=== PATIENT | female | born 1960 | race Caucasian/White ===

== ENCOUNTER 2022-05-13 10:07 | Outpatient (CLI) | payer SELFPAY ==
--- NOTE | 2022-05-13 10:15 | MR_ITS ---
[address] [address] Phone:?[phone] Fax:?[phone] Referring Physician Information: Robyn Camarena [address] [facility] [address] Phone:?[phone] Fax:?[phone] Patient:?Adrianna Moore D.O.B:?1960 Sex:?Female Phone:?[phone] [facility] MRN:?[id number] Exam Date:?05/13/2022 ? EXAM: MRI EXAMINATION OF THE LEFT TIBIA/FIBULA CLINICAL INFORMATION: Evaluate mid to proximal fibular pathology. Pain. TECHNICAL INFORMATION: Axial T1 and PD fat saturation. Coronal T1, T2 and STIR. Sagittal STIR images were acquired. There are no prior studies available for comparison. INTERPRETATION: Bones: There is no evidence for an acute fracture or osseous contusion. No evidence for bone marrow edema signal or periostosis to indicate occult bony stress injury. No evidence for a discrete geographic bone lesion. No other abnormal bone marrow edema pattern is identified. Musculotendinous structures: No acute musculotendinous injury. Specifically, no acute muscle tear, hematoma or other edema pattern. There is no evidence for abnormal fatty muscle belly atrophy. No other muscle belly signal alteration. Soft tissues: There is an abnormal appearance as seen on series 7 images 14 through 23 as well as series 11 images 11 through 23 of a 5.3 cm craniocaudal by 3.4 cm AP by 2.6 cm mediolateral lobulated soft tissue ganglion cyst at the lateral aspect of the proximal fibula. The cranial most extent is situated deep to the distal fibers of the fibular collateral ligament and biceps femoris tendon. This continues into the deep subcutaneous tissues anterolateral to the proximal fibular shaft. CONCLUSION: 1. There is a complex and lobulated soft tissue ganglion cyst lateral to the proximal fibula. The cranial extent is situated deep to the distal fibers of the fibular collateral ligament biceps femoris tendon. This continues inferiorly from this within the deep subcutaneous tissues anterolateral to the proximal fibular shaft. 2. No evidence for edema signal or atrophy to indicate muscle belly denervation changes. 3. No abnormal bone marrow edema signal, peristalsis or evidence for a discrete geographic bone lesion. [facility]ES Electronically signed on 05/13/2022 2:58:00 PM by Kane Frazier M.D.
== END 2022-05-13 10:08 | disposition home or self-care (01) ==
LOC: MRI 10:08
PROVIDERS: PCP Nurse Practitioner; Visit Provider Physician Assistant
DX: M25.562 Pain in left knee (principal); M25.462 Effusion, left knee; M67.462 Ganglion, left knee
CPT/HCPCS: 73718